=== PATIENT | female | born 1960 | race Caucasian/White ===

== ENCOUNTER 2018-12-04 16:13 | Emergency (ER) | payer MEDICARE ==
[2018-12-04 16:54] VITALS: TEMP 98.7
--- NOTE | 2018-12-04 17:57 | XR ---
EXAMINATION TYPE: XR shoulder complete RT DATE OF EXAM: 12/04/2018 COMPARISON: NONE HISTORY: Pain TECHNIQUE: 3 views FINDINGS: There is mild spurring at the inferior glenoid labrum. I see no fracture nor dislocation. T here is spurring at the AC joint. IMPRESSION: Mild osteoarthritis. No fracture seen.
[2018-12-04 17:59] LABS: Glucose,Whole Blood 312 mg/dL (75-99)
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
[2018-12-04] MEDS ORDERED: NAPROXEN 250 MG TAB PO STA (20:43)
[2018-12-04 21:03] VITALS: BP 121/92; PULSE 92; RESP 19
== END 2018-12-04 21:03 | disposition home or self-care (01) ==
LOC: EC 16:13
DX: S40.011A Contusion of right shoulder, initial encounter (principal); F32.9 Major depressive disorder, single episode, unspecified; R45.86 Emotional lability; F17.200 Nicotine dependence, unspecified, uncomplicated; Z88.1 Allergy status to other antibiotic agents; Z88.2 Allergy status to sulfonamides; Z88.5 Allergy status to narcotic agent; Z88.6 Allergy status to analgesic agent; Z59.0 Homelessness; Y04.2XXA Assault by strike against or bumped into by another person, initial encounter; Y92.009 Unspecified place in unspecified non-institutional (private) residence as the place of occurrence of the external cause
CPT/HCPCS: 36415; 99284

== ENCOUNTER 2018-12-04 23:21 | Emergency (ER) | payer MEDICARE ==
[2018-12-05 00:05] LABS: Amphetamine Screen,Urine Not Detected (NotDetected); Barbiturate Screen,Urine Not Detected (NotDetected); Benzodiazepines Screen,Urine Not Detected (NotDetected); Cocaine Screen,Urine Not Detected (NotDetected); Methadone Screen, Urine Not Detected (NotDetected); Opiate Screen,Urine Not Detected (NotDetected); Oxycodone Screen, Urine Not Detected (NotDetected); Phencyclidine Screen,Urine Not Detected (NotDetected); Tricyclic Antidepressant,Urine Not Detected (NotDetected); Urn Cannabinoid Scrn Detected (NotDetected)
[2018-12-05] MEDS ORDERED: KETOROLAC 30 MG/ML 1 ML VIAL IM STA (00:24)
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
[2018-12-05 03:15] LABS: Glucose,Whole Blood 424 mg/dL (75-99)
[2018-12-05] MEDS ORDERED: INSULIN ASPART (NovoLOG) 100 UNIT/ML VIAL SQ STA (03:21)
[2018-12-05 04:25] LABS: ALT 25 U/L (9-52); AST 20 U/L (14-36); African American GFR (CKD) >90 (>60 ml/min/1.73 sqM); Albumin 3.1 g/dL (3.5-5.0); Alkaline Phosphatase 140 U/L (38-126); Anion Gap 8 mmol/L; Blood Urea Nitrogen 22 mg/dL (7-17); Calcium 9.2 mg/dL (8.4-10.2); Carbon Dioxide 23 mmol/L (22-30); Chloride 107 mmol/L (98-107); Glucose 361 mg/dL (74-99); Potassium 3.7 mmol/L (3.5-5.1); Sodium 138 mmol/L (137-145); Total Bilirubin 0.8 mg/dL (0.2-1.3); Total Protein 5.5 g/dL (6.3-8.2)
[2018-12-05 04:28] VITALS: RESP 18
[2018-12-05 04:28] LABS: Basophils # (A) 0.1 k/uL (0-0.2); Basophils % (A) 1 %; Eosinophils # (A) 0.3 k/uL (0-0.7); Eosinophils % (A) 4 %; HCT 33.5 % (34.0-46.0); HGB 11.2 gm/dL (11.4-16.0); Lymphocytes # (A) 2.7 k/uL (1.0-4.8); Lymphocytes % (A) 40 %; MCH 29.8 pg (25.0-35.0); MCHC 33.5 g/dL (31.0-37.0); Mean Platelet Volume 7.5; Monocytes # (A) 0.4 k/uL (0-1.0); Monocytes % (A) 6 %; Neutrophils # (A) 3.2 k/uL (1.3-7.7); Neutrophils % (A) 47 %; Platelet Count 190 k/uL (150-450); RBC 3.76 m/uL (3.80-5.40); RDW 14.7 % (11.5-15.5); WBC 6.9 k/uL (3.8-10.6)
[2018-12-05 04:28] LABS: Appearance,Urine Clear (Clear); Bilirubin,Urine Negative (Negative); Blood,Urine Negative (Negative); Color,Urine Yellow; Glucose,Urine (UA) 4+ (Negative); Hyaline Casts,Urine 7 /lpf (0-2); Ketones,Urine Negative (Negative); Leukocyte Esterase,Urine Negative (Negative); Mucus,Urine Rare /hpf; Nitrite,Urine Negative (Negative); PH, Urine 5.5 (5.0-8.0); Protein,Urine 1+ (Negative); RBC,Urine 3 /hpf (0-5); Specific Gravity,Urine 1.036 (1.001-1.035); Squamous Epithelial Cell,Urine 4 /hpf (0-4); Urobilinogen,Urine <2.0 mg/dL (<2.0); WBC,Urine 2 /hpf (0-5)
[2018-12-05] MEDS ORDERED: cloNIDine HCL 0.1 MG TAB PO STA (05:55)
[2018-12-05 06:00] LABS: Glucose,Whole Blood 180 mg/dL (75-99)
[2018-12-05] MEDS ORDERED: INSULIN ASPART (NovoLOG) 100 UNIT/ML VIAL SQ SCH (07:30)
[2018-12-05 07:36] LABS: Glucose,Whole Blood 132 mg/dL (75-99)
[2018-12-05 07:51] VITALS: BP 124/78; PULSE 84; TEMP 98.4
== END 2018-12-05 08:40 ==
LOC: EC 23:21
DX: F32.9 Major depressive disorder, single episode, unspecified (principal); R45.851 Suicidal ideations; F17.200 Nicotine dependence, unspecified, uncomplicated; Z88.6 Allergy status to analgesic agent; Z88.5 Allergy status to narcotic agent; Z88.2 Allergy status to sulfonamides; Z88.1 Allergy status to other antibiotic agents
CPT/HCPCS: 82075; 36415; 80053; 85025; 81001; 80306; 99285; 96372; J1885